=== PATIENT | female | born 2000 | race Caucasian/White ===

== ENCOUNTER 2021-09-26 15:52 | Emergency (ER) | payer BC ==
[~2021-09-26] VITALS: Ht 167.6 cm; Wt 52.2 kg
[2021-09-26 15:55] VITALS: BP_SYST 125
--- NOTE | 2021-09-26 16:01 | NUR ---
Placed in room 03 . Placed on medical underwriter, blood pressure machine and pulse oximeter. To gown for exam. Side rails up.
--- NOTE | 2021-09-26 16:01 | NUR ---
Patient brought in from asthma exacerbation from home complaining of shortness of breath. Patient reports was using inhaler but has . Patient is speaking full sentences o2 saturations at 98% on Room air. Wheezing heard bilaterally. Patient reports having a nebulizer at home but is to far from home. denies any pain .
--- NOTE | 2021-09-26 16:15 | NUR ---
ER Dr. Demarco at bedside examining patient.
[2021-09-26] MEDS ORDERED: PRED20TA PO (16:20)
[2021-09-26] MEDS ORDERED: ALBU8.5H8 INH (16:20)
[2021-09-26] MEDS: IPRATROPIUM/ALBUTEROL SULFATE 3 ML AMPUL.NEB (DUONEB) INH ONE (16:21)
--- NOTE | 2021-09-26 16:21 | NUR ---
RT at bedside
--- NOTE | 2021-09-26 16:36 | NUR ---
breathing treatment completed. patient reports relief of symptoms
[2021-09-26 16:44] VITALS: BP_SYST 122
--- NOTE | 2021-09-26 16:45 | NUR ---
Patient given written and verbal discharge instructions and verbalizes understanding. ER MD discussed with patient the results and treatment provided. Patient in stable condition. ID arm band removed. Rx of ALBUTEROL AND PREDNISONE given. Patient educated on pain management and to follow up with PMD. Pain Scale 0/10. Opportunity for questions provided and answered. Medication side effect fact sheet provided.
== END 2021-09-26 16:44 | disposition home or self-care (01) ==
LOC: SED 15:52
DX: J45.901 Unspecified asthma with (acute) exacerbation (principal); Z79.899 Other long term (current) drug therapy; Z91.013 Allergy to seafood
CPT/HCPCS: 94640; 99283